=== PATIENT | male | born 1955 | race Caucasian/White ===

== ENCOUNTER 2018-09-05 15:27 | Inpatient (IN) ==
[2018-09-05] MEDS ORDERED: *HR* Midazolam HCl 2 MG/2 ML VIAL ONE (16:12)
[2018-09-05] MEDS ORDERED: *HR* FentaNYL (PF) 100 MCG/2 ML VIAL ONE (16:12)
[2018-09-05] MEDS ORDERED: Tirofiban 12.5 MG/250ML 12.5 MG/250 ML BAG ONE (16:25)
[2018-09-05] MEDS ORDERED: ISOVUE-370 200 ML INFUS..BTL ONE (16:38)
--- NOTE | 2018-09-05 18:59 | Cardiology History & Physical ---
Date of Encounter: 09/05/18 Time of Encounter: 18:57 Assessment and Plan (1) Acute anterior wall OH Status: Acute The assessment and plan as outlined above was discussed with the patient and/or family members who expressed understanding and agreement. All questions were answered. R/B/A d/w patient and he agreed to proceed to an LHC. Patient referred from [facility] for emergent LHC History of Present Illness Chief complaint: chest pain HPI: Mr. Landers is a 63 year old male with hx of mCRFs here with chest pain and EKG changes suggestive of an anterior OH. Patient [facility] emerg[facility] and hence hx is limited. R/B/A d/w patient and he agreed to proceed with an LHC. Past Med Surg Social Fam HX - Past Medical History Medical history: COPD, other (Patient has reportedly failed stress test prior) Psychiatric history: no psych history - Social History Smoking Status: Current every day smoker Smokeless Tobacco Status: No Alcohol use: none Drug use: none Medications and Allergies Unable To Obtain [Unable to Obtain] 09/05/18 [History] Allergy/AdvReac Type Severity Reaction Status Date / Time No Known Allergies Allergy Verified 09/05/18 15:02 All Systems Review: The remainder of the systems were reviewed and are negative Physical Examination General: Conversant, No Apparent Distress HEENT: Atraumatic, Normocephaly, Mucus Membranes Moist Neck: No JVD, Normal carotid pulses Cardiac: Reg Rate and Rhythm, Normal S1 and S2, No Murmur Lungs: Normal Breath Sounds, No Wheeze, Rales, Rhonchi Neuro: Alert and responsive, No focal deficits noted Abdomen: Soft, Non-Tender Skin: No rashes noted on visualized skin Musculoskeletal: No Chest Wall Tenderness Extremities: No Clubbing, No Cyanosis, No Edema, Normal Pulses
[2018-09-05] MEDS ORDERED: Tirofiban 12.5 MG/250ML 12.5 MG/250 ML BAG IVC SCH (19:00)
--- NOTE | 2018-09-05 19:22 | Invasive Diagnostic Lab Proc ---
Name: Edmund Landers Date of Study: 09/05/2018 Date: 1955 Ht: 68.1in Medical Record#: [id number] Age: 63 Wt: 138.01lb Gender: Male BSA: 1.75 Order #: [id number] BMI: 20.92 Physicians Procedure Physician: Luba Shankar MD Referring MD: Referring MD: Staff Name Position Time In Salvatore Ruiz RN Accounting Assistant 04:09 PM New Bustamante RN Accounting Assistant 04:09 PM Ricardo Gold RN Monitor 04:10 PM Shruthi Villatoro RT (R) Scrub 04:10 PM Indications Indication STEMI Procedures Performed Procedure CORONARY ARTERY ANGIO S&I PRQ CARD REVASC GA 1 VSL PRQ CARD MARIE STENT W/ANGIO 1 VSL Pre-Procedure Checklist Pt not NPO for procedure and MD aware. Plan of Care Patient will tolerate the procedure without complications. Adequate level of comfort will be maintained. Hemodynamics will remain stable Patient will recover from procedure without complications. Respiratory function will be maintained. Cardiac rhythm will remain stable. Patient temperature will be maintained. Patient and/or family have verbalized understanding of the procedure. Patient Education Allergies No Known Allergies Vital Signs Time BP (mmHg) HR (bpm) O2 Sat. RR (bpm) LOC 04:11 PM / % 5 = Fully awake and oriented or at pre-proc level 04:11 PM / % 4 = Oriented but drowsy 04:26 PM / % 4 = Oriented but drowsy 04:41 PM / % 4 = Oriented but drowsy 04:09 PM 142 / 108 77 98 % 19 04:14 PM 120 / 92 91 100 % 11 04:19 PM 114 / 85 92 100 % 04:24 PM 118 / 77 83 96 % 04:29 PM 116 / 80 95 96 % 14 04:34 PM 124 / 90 89 99 % 16 04:39 PM 131 / 91 86 98 % 20 04:44 PM 126 / 83 81 98 % 19 04:49 PM 124 / 92 96 100 % 16 04:54 PM 111 / 79 94 100 % 16 04:59 PM 119 / 78 97 100 % 21 05:30 PM 109 / 80 88 99 % 20 5 = Fully awake and oriented or at pre-proc level 05:53 PM 109 / 83 89 98 % 16 5 = Fully awake and oriented or at pre-proc level 06:02 PM 117 / 83 89 98 % 18 5 = Fully awake and oriented or at pre-proc level 06:13 PM 116 / 81 79 97 % 16 4 = Oriented but drowsy 07:13 PM 122 / 86 77 96 % 16 4 = Oriented but drowsy Procedural Medications Time Medication Dose Units Method Given By 04:11 PM Oxygen 2 L/min nasal cannula Salvatore Ruiz RN 04:12 PM Versed 1 mg Intravenous Salvatore Ruiz RN 04:13 PM Fentanyl 50 mcg Intravenous Salvatore Ruiz RN 04:15 PM Lidocaine 2% 16 ml Subcutaneous Luba Shankar MD 04:27 PM Heparin 3000 units Intravenous Salvatore Ruiz RN 04:29 PM Aggrastat Bolus: 33 ml Intravenous Salvatore Ruiz RN 04:29 PM Aggrastat 12.5mg/250ml 6 ml/hr Intravenous Salvatore Ruiz RN 04:38 PM Nitroglycerin 200 mcg Intracoronary Dave Shankar MD 04:39 PM Nitroglycerin 200 mcg Intracoronary Dave Shankar MD 04:54 PM Nitroglycerin 200 mcg Intracoronary Dave Shankar MD ASA Classification: CLASS II- Mild systemic disease (i.e. well-controlled diabetes, hypertension, asthma, cigarette smoking) Emergent Procedure: ASA score is assumed Amanda Score Preprocedure Postprocedure Activity 2- Moves 4 extremities sustained head lift Activity 2- Moves 4 extremities sustained head lift Circulation 2- SBP +/= 20 points of pre-anesthetic level Circulation 2- SBP +/= 20 points of pre-anesthetic level Consciousness 2- Awake and alert oriented x 3 Consciousness 2- Awake and alert oriented x 3 O2 Saturation 2- Able to maintain O2 satruation of 92% on room air O2 Saturation 2- Able to maintain O2 satruation of 92% on room air Respiratory 2- Able to deep breathe and cough well Respiratory 2- Able to deep breathe and cough well Total Score 10 Total Score 10 Contrast Agent: Isovue Diagnostic Contrast: 219 ml Total Contrast: 219 ml Fluoro Dose: 25 mGy Activated Clotting Time Time Seconds to Clot 04:22 PM 162 Procedure Log Time Note Enter By 04:09 PM Vitals capture started with the following parameters, Patient=Adult, Interval=5 min, Initial Jtuwpakk=259 mmHg, Deflation Rate=5 mmHg, Cuff placed on Right Arm 04:09 PM Patient with no chest pain on arrival cedwards 04:09 PM Case Start 04:09 PM CathStat 04:09 PM Recorded ECG: HR=75 Condition=Condition 1 04:09 PM HR=77 bpm, IOYX=437/108 mmhg, SpO2=98.0 %, Resp=19 B/min, Comment=NSR 04:09 PM Pt arrived to laborer pole crew 2 at 16:09 cedwards 04:09 PM Salvatore Ruiz RN Position: Accounting Assistant Time in: 16: cedwards 04:10 PM New Bustamante RN Position: Accounting Assistant Time in: 16: cedwards 04:10 PM Ricardo Gold RN Position: Monitor Time in: 16:10 cedwards 04:10 PM Irving, Shruthi RT (R) Position: Scrub Time in: 16:10 cedwards 04:10 PM Patient charges- Angio tray pack, Navilyst 3mm J, Pulse Oximetry and ACIST tubing and transducer ced 04:10 PM IV Supplies used: J loop Angio Cath. ced 04:10 PM Hair removed from procedure site in procedure lab using clippers. Bilateral groin prepped with Chloraprep by Ricardo Gold RN, then patient was draped. Skin intact. ced 04:10 PM Physician arrived 16:10 ced 04:10 PM ASA Class CLASS II- Mild systemic disease (i.e. well-controlled diabetes, hypertension, asthma, cigarette smoking) ced 04:10 PM Meet and greet completed 04:10 PM Sign in performed according to hospital policy. Informed consent was obtained. cedwards 04:10 PM Procedure start 16:10 ced 04:11 PM Time: 16:11 Oxygen on at 2 L/min per nasal cannula by Salvatore Ruiz RN ced 04:11 PM Time: 16:11 Patient comfortable and pain free: Yes ced 04:11 PM Time: 16:11LOC: 5 = Fully awake and oriented or at pre-proc level ced 04:13 PM Time: 16:12 Versed 1 mg Intravenous Given by Salvatore Ruiz RN ced 04:13 PM Time: 16:13 Fentanyl 50 mcg Intravenous Given by Salvatore Ruiz RN cedwards 04:14 PM HR=91 bpm, OPNE=487/92 mmhg, ZrH6=338.0 %, Resp=11 B/min 04:15 PM Clinical Presentation: STEMI or equivalent ced 04:15 PM Time out was performed according to hospital policy. Conscious sedation and anesthesia was achieved (see medication log with in this report above) cedwards 04:17 PM Time: 16:15 16 ml Lidocaine 2% to right groin Subcutaneous Given by Luba Shankar MD cedwards 04:18 PM Micro-Introducer Kit utilized for sheath placement cedwards 04:19 PM HR=92 bpm, YBNK=033/85 mmhg, XrS5=376.0 %, Comment=NSR 04:19 PM 0.035 145cm Navilyst 3mmJ wire [id number] cedwards 04:20 PM 0.035 180cm Glidewire wire [id number] cedwards 04:20 PM Access obtained by percutaneous puncture. 6Fr 10cm Terumo Delaplane sheath placed in right Femoral artery. [id number] cedwards 04:21 PM 5Fr FR 4 catheter inserted over the wire [facility] cedwards 04:22 PM RCA angiography performed in multiple views. cedwards 04:22 PM At 16:22 the ACT was 162 seconds. cedwards 04:23 PM Catheter removed cedwards 04:24 PM 5Fr FL 4 catheter inserted over the wire DN cedwards 04:24 PM HR=83 bpm, LFJN=834/77 mmhg, SpO2=96.0 % 04:26 PM Time: 16:11LOC: 4 = Oriented but drowsy cedwards 04:27 PM Lesion found in Mid RCA. Pre Stenosis: 95 Pre STEPAN Flow: 3: Complete and Brisk Flow/Perfusion cedwards 04:27 PM Lesion found in Proximal LAD. Pre Stenosis: 95 Pre STEPAN Flow: 3: Complete and Brisk Flow/Perfusion cedwards 04:27 PM Recorded Pressure: Ao, HR=88, Condition=Condition 1 (Aorta) Ao 77/-23/32 04:27 PM Time: 16:27 Heparin 3000 units Intravenous Given by Salvatore Ruiz RN cedwards 04:28 PM 6Fr JR 4 Cordis guide catheter was used to cannulate the PCI vessel successfully. reused? No cedwards 04:28 PM .014 [employer] [place] 190cm guide wire across target lesion- successful. reused? No cedwards 04:28 PM Inflation device was opened. cedwards 04:29 PM Time: 16:29 Aggrastat Bolus: 33 ml Intravenous Given by Salvatore Ruiz RN Burleson pump cedwards 04:29 PM Time: 16:29 Aggrastat 12.5mg/250ml 6 ml/hr Intravenous Given by Salvatore Ruiz RN Burleosn pump cedwards 04:29 PM HR=95 bpm, LYPP=088/80 mmhg, SpO2=96.0 %, Resp=14 B/min 04:29 PM 2.0 mm x 12 mm Mozec Rx balloon across target lesion- successful. reused? No cedwards 04:30 PM Recorded Pressure: Ao, HR=94, Condition=Condition 1 (Aorta) Ao 126/83/103 04:31 PM Coronary Dominance: right cedwards 04:32 PM Lesion found in Distal RCA. Pre Stenosis: 65 Pre STEPAN Flow: cedwards 04:34 PM Balloon inflated @ 6 maci for 8 seconds cedwards 04:34 PM Balloon catheter removed intact. cedwards 04:34 PM HR=89 bpm, JULN=539/90 mmhg, SpO2=99.0 %, Resp=16 B/min 04:35 PM 2.5mm x 20mm Synergy drug-eluting stent across target lesion- successful Lot #[id number] cedwards 04:36 PM Stent deployed @ 11 maci for 12 seconds cedwards 04:36 PM Stent balloon reinflated @ 14 maci for 8 seconds cedwards 04:37 PM Stent delivery system removed intact. cedwards 04:38 PM Time: 16:38 Nitroglycerin 200 mcg Intracoronary Given by Dave Shankar MD cedwards 04:38 PM Recorded Pressure: Ao, HR=88, Condition=Condition 1 (Aorta) Ao 141/87/110 04:39 PM HR=86 bpm, FWCJ=744/91 mmhg, SpO2=98.0 %, Resp=20 B/min 04:39 PM Time: 16:39 Nitroglycerin 200 mcg Intracoronary Given by Dave Shankar MD cedwards 04:40 PM Recorded Pressure: Ao, HR=89, Condition=Condition 1 (Aorta) Ao 117/83/98 04:41 PM Time: 16:26LOC: 4 = Oriented but drowsy cedwards 04:42 PM Stent delivery system removed intact. cedwards 04:42 PM Guide wire removed intact. cedwards 04:42 PM Guide catheter removed intact. cedwards 04:42 PM 6Fr XB LAD 3.5 Cordis guide catheter was used to cannulate the PCI vessel successfully. reused? No cedwards 04:44 PM HR=81 bpm, CRRA=556/83 mmhg, SpO2=98.0 %, Resp=19 B/min 04:45 PM Recorded Pressure: Ao, HR=89, Condition=Condition 1 (Aorta) Ao 116/83/98 04:47 PM 2.0 mm x 12 mm Mozec Rx balloon across target lesion- successful. reused? Yes cedwards 04:48 PM Balloon inflated @ 6 maci for 2 seconds cedwards 04:48 PM Balloon inflated @ 6 maci for 6 seconds cedwards 04:48 PM Balloon inflated @ 6 maci for 10 seconds cedwards 04:49 PM Balloon catheter removed intact. cedwards 04:49 PM HR=96 bpm, UMQE=217/92 mmhg, DpS6=841.0 %, Resp=16 B/min, Comment=NSR 04:51 PM 3.0mm x 20mm Synergy drug-eluting stent across target lesion- successful Lot #[id number] cedwards 04:52 PM Stent deployed @ 9 maci for 8 seconds cedwards 04:53 PM Stent balloon reinflated @ 14 maci for 7 seconds cedwards 04:53 PM Stent delivery system removed intact. cedwards 04:53 PM Recorded Pressure: Ao, HR=91, Condition=Condition 1 (Aorta) Ao 129/87/106 04:54 PM Time: 16:54 Nitroglycerin 200 mcg Intracoronary Given by Dave Shankar MD cedwards 04:54 PM HR=94 bpm, DCHX=259/79 mmhg, PtM3=566.0 %, Resp=16 B/min 04:55 PM 3.5 mm x 13mm Mozec NC balloon across target lesion- successful. reused? No cedwards 04:57 PM Time: 16:41LOC: 4 = Oriented but drowsy cedwards 04:57 PM Balloon inflated @ 12 maci for 9 seconds cedwards 04:57 PM Balloon inflated @ 12 maci for 4 seconds cedwards 04:57 PM Balloon catheter removed intact. cedwards 04:59 PM Guide wire removed intact. cedwards 04:59 PM Guide catheter removed intact. cedwards 04:59 PM HR=97 bpm, ALWP=404/78 mmhg, VlT9=666.0 %, Resp=21 B/min 05:01 PM Procedure completed at 17:01 09/05/2018 cedwards 05:02 PM Did you address STEPAN flow and Dominance? Yes cedwards 05:03 PM Sign out completed: Radiation Dose 236.67 mGy, 25.1 Gy/cm2 Fluoro Time: 12.2 Isovue 370 - 200ml contrast 219 ml given by Luba Shankar MD. Complications: None. The patient was discharged out of the labeler in stable condition. Sedation minutes 49. Cardiac Rehab Consult needed: Yes. Confirmed administered medications: Yes cedwards 05:03 PM Isovue 370 - 200ml,2 Bottle(s) used. cedwards 05:04 PM Arterial sheath pulled, Angio-seal closure device used and was Successful [id number] S/N. cedwards 05:04 PM Estimated Blood Loss: minimal cedwards 05:04 PM Post ECG NSR cedwards 05:04 PM Post Blood Pressure 119/78 cedwards 05:04 PM Information taught Cardiac Cath, PCI, and Angioseal cedwards 05:04 PM Education needs Procedure, Plan of Care, and Disease Process cedwards 05:04 PM Learning barriers :None cedwards 05:04 PM Education Methods Verbal cedwards 05:04 PM Education evaluation Able to repeat information cedwards 05:05 PM Site status No bleeding/hematoma - Rt Groin as reported by Dave Shankar MD at 17:04 cedwards 05:05 PM Opsite applied cedwards 05:05 PM Plavix, Effient or Brilinta given Yes cedwards 05:05 PM Family not available. cedwards 05:06 PM Complications: None cedwards 05:06 PM 17:06 Post Pulses Bilateral DP 2+ cedwards 05:08 PM Lesion found in 3rd Marginal. Pre Stenosis: 65 Pre STEPAN Flow: cedwards 05:09 PM Patient taken to holding, currently no beds available cedwards 05:30 PM Patient resting. Provided warm blankets. Denies any pain at this time. kprater 06:04 PM Patient talking on phone with family. kprater 06:13 PM 275 clear yellow urine per urinal. kprater 06:38 PM Patient sleeping. kprater 07:12 PM Report given to Ottoniel RICHARDSON Pt taken to Room #7. 19:12 ejohnson Complications Complication None None Hemodynamics Pressures Site Systolic/A Wave Diastolic/V Wave Mean AO 77 -23 32 AO 126 83 103 AO 141 87 110 AO 117 83 98 AO 116 83 98 AO 129 87 106 Post Procedure Information Blood Pressure: 119/78 mmHg Rhythm: NSR Post procedural instructions were given Closure Device Time Device Success/Fail 09/05/2018 5:06:00 PM Angio-Seal VIP Successful Site Checks Time Location Status Staff Sheath In? Note 05:04 PM Rt Groin No bleeding/hematoma Dave Shankar MD 05:38 PM Rt Groin No bleeding/ No Hematoma Sydnie Edmondson RN 05:52 PM Rt Groin No bleeding/ No Hematoma Sydnie Edmondson RN 05:59 PM Rt Groin No bleeding/ No Hematoma Sydnie Edmondson RN 06:37 PM Rt Groin No bleeding/ No Hematoma Sydnie Edmondson RN Pulses Time Site Pre-Procedure Post-Procedure Note 5:06:00 PM Bilateral DP 2+ 2+ Updated by Guadalupe Kim RN on 09/05/2018 7:13:32 PM electronically signed on 09/05/2018 7:14:04 PM with status of Final
[2018-09-05] MEDS ORDERED: Perflutren Lipid Microsphere 1.3 ML in 0.9 % Sodium Chloride 8.7 ML IVP ONE (21:40)
[2018-09-05] MEDS: *HR* Ticagrelor 90 MG TABLET PO SCH (22:20)
[2018-09-06] MEDS: *HR* Ticagrelor 90 MG TABLET PO SCH ×2 (07:36→20:08)
[2018-09-06] MEDS: Aspirin 81 MG TAB.CHEW PO SCH (07:36)
[2018-09-06 07:50] LABS: Basophils # 0.1 K/mcL (0.0-0.2); Basophils % 0.5 %; Eosinophils # 0.1 K/mcL (0.0-0.6); Eosinophils % 1.5 %; Hematocrit 42.3 % (37.5-50.1); Hemoglobin 14.3 g/dL (12.9-16.9); Immature Granulocytes % 0.4 % (0-4); Lymphocytes # 1.9 K/mcL (0.6-4.6); Lymphocytes % 19.9 %; Mean Corpuscular HGB Conc 33.8 g/dL (31.6-35.5); Mean Corpuscular Hemoglobin 30.8 pg (28.0-33.3); Mean Platelet Volume 10.7 fL (9.4-12.4); Monocytes # 0.8 K/mcL (0.0-1.3); Monocytes % 8.2 %; Neutrophils # 6.5 K/mcL (1.6-8.9); Platelet Count 253 K/mcL (140-400); Red Blood Count 4.65 M/mcL (4.19-5.50); Red Cell Distribution Width 13.9 % (11.5-14.5); Segmented Neutrophils % 69.5 %
[2018-09-06 08:04] LABS: BUN/Creatinine Ratio 18 (6-26); Blood Urea Nitrogen 16 mg/dL (8-23); Calcium 8.8 mg/dL (8.6-10.3); Carbon Dioxide 20 mEq/L (23-29); Chloride 111 mEq/L (98-107); Glucose 91 mg/dL (70-105); Osmolality,Calculated 291 (280-300); Potassium 4.3 mEq/L (3.5-5.1); Sodium 140 mEq/L (136-145); eGFR For Non-African Americans > 60 (> 60)
--- NOTE | 2018-09-06 15:15 | Cardiology Progress Note ---
Date of Encounter: 09/06/18 Time of Encounter: 15:13 Assessment and Plan (1) ST elevation myocardial infarction (STEMI) Current Visit: No Status: Acute Per cardiology: -Admitted as acute STEMI and was taken emergently to lab pack chemist. -LHC with 95% prox LAD with MARIE placed, 95% mid RCA with MARIE placed, 65% distal RCA, 65% om3. -TTE with LVEF 50%, regional wall motion abnormalities noted. -On asa, brilinta, statin. Educated on dual anti-platelet therapy uninterrupted for at least one year, states understanding. -Will add BB. -Potential DC tomorrow. -of note, patient is from [place] and was here taking care of his mother, states he had previously planned on going back to [place] this week. Patient follows with [facility] in [place]. Recommended [facility] call [facility] and obtain appt in 5-7 days with [facility] clinical phlebotomist in [place]. Qualifiers: Involved coronary artery: LAD coronary artery Qualified Code(s): I21.02 - ST elevation (STEMI) myocardial infarction involving left anterior descending coronary artery (2) Essential hypertension Current Visit: Yes Status: Acute Per cardiology: -Kown HTN. -Adding BB. -Will continue to monitor. Discussion w patient/family: The assessment and plan as outlined above was discussed with the patient who expressed understanding and agreement. All questions were answered. Thank you for involving us in the care of your patient. Please call with any questions. Discussed and reviewed with Subjective Principal diagnosis: STEMI Interval history: Patient denies chest pain. Objective Vital Signs, Last 4 Hours Temp Pulse Resp BP Pulse Ox 09/06/18 12:02 98.3 F 65 18 102/85 98 09/06/18 11:29 98.7 F 67 18 115/74 99 General: Conversant, No Apparent Distress HEENT: Atraumatic, Normocephaly, Mucus Membranes Moist Neck: No JVD, Normal carotid pulses Cardiac: Reg Rate and Rhythm, Normal S1 and S2, No Murmur Lungs: Normal Breath Sounds, No Wheeze, Rales, Rhonchi Neuro: Alert and responsive, No focal deficits noted Abdomen: Soft, Non-Tender Skin: No rashes noted on visualized skin, Other (Right groin access site without hematoma. ) Musculoskeletal: No Chest Wall Tenderness Extremities: No Clubbing, No Cyanosis, No Edema, Normal Pulses Results 09/06/18 07:17 09/06/18 07:17 Lab Results Impressions Echocardiogram 09/05/18 18:55 Impressions: LVEF 50%. Mild segmental left ventricular systolic dysfunction. Mild left ventricular diastolic dysfunction. Normal right ventricular structure and function. Unable to estimate RVSP due to lack of TR jet. No significant valvular dysfunction. Left Ventricular Wall Motion: Rest Echo Findings The apical anterior, mid anterior, apical septal and mid anterior septal sainz were hypokinetic. All other wall segments showed normal motion. Findings: Study Quality * Technically adequate exam. ECG Findings * Sinus rhythm with BBB. Left Ventricle * LVEF 50%. * Mild segmental left ventricular systolic dysfunction. * Normal LV chamber size. * Definity echo contrast was used. * Atypical septal motion consistent with bundle branch block. * There is no LV thrombus. * Mild left ventricular diastolic dysfunction. Right Ventricle * Normal right ventricular structure and function. Left Atrium * Normal left atrial size. Right Atrium * Normal right atrial size. Aortic Valve * Aortic valve not well visualized. * No aortic regurgitation. * No aortic stenosis. Mitral Valve * No mitral stenosis. * Normal mitral valve structure. * Trace mitral regurgitation. Tricuspid Valve * Normal tricuspid valve structure. * Trace tricuspid regurgitation. * No tricuspid stenosis. * Unable to estimate RVSP due to lack of TR jet. Pulmonic Valve * Pulmonic valve not well visualized. Aorta * Normally sized aortic root. Pericardium * The pericardium appears normal. IVC * Normal IVC dimensions and inspiratory collapse. Pulmonary Artery * Normal visualized portions of the main pulmonary artery. Active Medications Aspirin (Aspirin) 81 mg PO DAILY BRYANNA Stop: 03/08/19 09:01 Last Admin: 09/06/18 07:36 Dose: 81 mg Atorvastatin Calcium (Lipitor) 80 mg PO HS BRYANNA Stop: 03/07/19 21:01 Last Admin: 09/05/18 22:20 Dose: 80 mg Metoprolol Succinate (Toprol Xl) 25 mg PO DAILY BRYANNA Stop: 03/08/19 15:16 Ticagrelor (Brilinta) 90 mg PO BID BRYANNA Stop: 03/07/19 21:01 Last Admin: 09/06/18 07:36 Dose: 90 mg Laboratory Tests 09/06/18 09/06/18 07:17 07:17 Hgb 14.3 Creatinine 0.89 - Imaging and Cardiology Chest Xray: report reviewed Echo: report reviewed Cardiac cath: report reviewed - EKG Interpretation EKG results cardiology: other (Telemetry reviewed with average HR previous 12 hours noted to be 72, SR. PVCs and PACs noted.) Consult Discharge Plan - Plan Referrals: [facility] ([facility] [Other] - 09/21/18 1:00 pm Luba Shankar [Partnered Physician] - (Per the office they will call the patient at home with follow up appointment)
--- NOTE | 2018-09-06 16:24 | Electrocardiograph Report ---
[place] [id number] Test Date: 2018-09-05 Pat Name: Edmund Landers Department: 110 Room: 2N13 Gender: M Passenger Coach Driver: : 1955 Requested By: Luba Shankar Order Number: [id number] Reading MD: Ottoniel Lehman Measurements Intervals [place] Rate: 76 P: 148 [place]: 139 QRS: 36 QRSD: 86 T: 150 QT: 390 QTc: 420 Interpretive Statements SINUS RHYTHM POSSIBLE LEFT ATRIAL ENLARGEMENT LOW QRS VOLTAGE IN EXTREMITY LEADS SEPTAL MYOCARDIAL INFARCTION, OF INDETERMINATE AGE MODERATE T-WAVE ABNORMALITY, CONSIDER ANTERIOR ISCHEMIA Electronically Signed On 09-06-2018 16:23:08 EDT by Ottoniel Lehman
[2018-09-06] MEDS: Metoprolol XL (24 HR) Succ 25 MG TAB.ER.24H PO SCH (19:08)
[2018-09-07 07:50] VITALS: BP 117/92
[2018-09-07] MEDS: *HR* Ticagrelor 90 MG TABLET PO SCH (08:46)
[2018-09-07] MEDS: Metoprolol XL (24 HR) Succ 25 MG TAB.ER.24H PO SCH (08:46)
[2018-09-07] MEDS: Aspirin 81 MG TAB.CHEW PO SCH (08:46)
[2018-09-07] MEDS ORDERED: Nitroglycerin 0.4 MG TAB.SUBL SL PRN (10:14)
--- NOTE | 2018-09-07 10:14 | Discharge Summary ---
- NOTES TO OUTPATIENT PROVIDER Notes to Outpatient Provider: Admitted after STEMI Orders not resulted at time of discharge: Pending orders 09/05/18 18:55 ECG 12 lead ECG [ECG] Routine ECG 12 lead ECG [ECG] Stat Date of Encounter: 09/07/18 Time of Encounter: 10:13 - Discharge Diagnosis (1) ST elevation myocardial infarction (STEMI) Priority: Primary Status: Acute Comments: Admitted after STEMI Qualifiers: Involved coronary artery: LAD coronary artery Qualified Code(s): I21.02 - ST elevation (STEMI) myocardial infarction involving left anterior descending coronary artery (2) Essential hypertension Priority: Secondary Status: Acute Comments: Known. BP controlled. - Hospital Course Hospital course: Mr. Lnaders is a 63 year old male who was admitted to [facility] with STEMI. Patient was taken emergently to the laboratory coordinator. LHC with 95% prox LAD with MARIE placed, 95% mid RCA with MARIE placed, 65% distal RCA, 65% om3. TTE with LVEF 50%, regional wall motion abnormalities noted. On asa, brilinta. Educated on dual anti- platelet therapy uninterrupted for at least one year, states understanding. On statin, BB. Denies chest pain. Right groin access site without ecchymosis or hematoma. Right groin access site management education reviewed with patient, states understanding. Patient is being prepped for discharge home in stable condition. All questions answered. Of note, patient is from [place] and was planning on going back to [place], however now states he may stay in [place]. Will arrange outpatient follow up with [facility]. Educated patient that if he returns to [place], he needs seen by a home mortgage disclosure act specialist within one week. Patient states understanding. Patient is being prepped for discharge home in stable condition. Patient is ok for discharge after medications filled at [facility]. - Time Spent with Patient Total time spent providing and/or coordinating discharge services: Less than 30 minutes - Discharge Medications Prescriptions: New Nitroglycerin 0.4 mg SL Q5MI PRN #15 tab.subl PRN Reason: Chest Pain Aspirin 81 mg PO DAILY #30 tab.chew Atorvastatin [Lipitor] 80 mg PO HS #30 tablet Metoprolol XL (24 HR) Succ [Toprol Xl] 25 mg PO DAILY #30 tab.er.24h Ticagrelor [Brilinta] 90 mg PO BID #180 tablet Discontinued Lisinopril/Hydrochlorothiazide [Zestoretic 10-12.5 mg Tablet] 1 tab PO DAILY Tadalafil [Cialis] 10 mg PO AD PRN PRN Reason: SEXUAL ACTIVITY No Action Aspirin 975 mg PO DAILY PRN PRN Reason: Pain Home Medications: Aspirin 975 mg PO DAILY PRN 09/05/18 [History] Aspirin 81 mg PO DAILY #30 tab.chew 09/07/18 [Rx] Atorvastatin [Lipitor] 80 mg PO HS #30 tablet 09/07/18 [Rx] Metoprolol XL (24 HR) Succ [Toprol Xl] 25 mg PO DAILY #30 tab.er.24h 09/07/18 [Rx] Nitroglycerin 0.4 mg SL Q5MI PRN #15 tab.subl 09/07/18 [Rx] Ticagrelor [Brilinta] 90 mg PO BID #180 tablet 09/07/18 [Rx] Allergies/Adverse Reactions: Allergy/AdvReac Type Severity Reaction Status Date / Time No Known Allergies Allergy Verified 09/05/18 22:22 Date of admission: 09/05/18 15:32 Primary care physician: PCP NONE Consults: 09/05/18 18:55 Consult to Cardiac Rehabilitation-Phase1 [CONS] Routine Comment: Reason for Consult: AMI Call Completed: Yes Consult to Nurse Navigator [CONS] Routine Comment: Discharging clinician: Linda Cameron Anticipated date of discharge: 09/07/18 Physical Examination Vital Signs, Last 4 Hours Temp Pulse Resp BP Pulse Ox 09/07/18 07:48 98.7 F 79 18 117/92 98 General: Conversant, No Apparent Distress HEENT: Atraumatic, Normocephaly, Mucus Membranes Moist Neck: No JVD, Normal carotid pulses Cardiac: Reg Rate and Rhythm, Normal S1 and S2, No Murmur Lungs: Normal Breath Sounds, No Wheeze, Rales, Rhonchi Neuro: Alert and responsive, No focal deficits noted Abdomen: Soft, Non-Tender Skin: No rashes noted on visualized skin, Other (Right groin access site without ecchymosis or hematoma. ) Musculoskeletal: No Chest Wall Tenderness Extremities: No Clubbing, No Cyanosis, No Edema, Normal Pulses - Patient Status Disposition: Home, Self-Care Condition: Good Functional capacity at discharge: independent ambulation Overall status at discharge: patient is progressing back to baseline - Discharge Instructions Follow Up With: [facility] [Other] - 09/21/18 1:00 pm Luba Shankar [Partnered Physician] - (Per the office they will call the patient at home with follow up appointment) Additional Instructions: RISK FACTORS: STOP SMOKING: If you smoke, STOP. Smoking or tobacco use significantly increases your risk of heart disease because nicotine causes the arteries to narrow or constrict. It also causes fats to stick to the artery. Your chances of having a heart attack are greatly increased if you continue to smoke. For more information, call the education line for smoking cessation 7-299-XYGDWXS EAT A LOW FAT/CHOLESTEROL/SODIUM DIET: This diet may help reduce your chances of having a heart attack. LIFTING: Avoid lifting anything more than 10 pounds for 5-7 days Prior to straining, laughing, sneezing and/or coughing, apply manual pressure directly over insertion site. ACTIVITY: You may walk or climb stairs as tolerated You can resume sexual activity as tolerated In general, you are encouraged to engage in a minimum of 30 minutes or more of moderate intensity physical activity, such as brisk walking, daily or at least 3-4 times weekly BATHING Do not submerge the site into water (bath tub, hot tub, swimming pool) for 1 week. This can be a source for infection into the blood stream. You may shower after 24 hours SITE CARE: After 24 hours, you may remove the dressing and leave the site open to air. Keep the site clean and dry. Clean gently and pat dry. You can expect bruising and tenderness that gradually resolve within a week or two. Return to work as instructed per your physician Resume driving as instructed per physician Keep all scheduled follow up appointments Resume medications as instructed IMPORTANT: If prescribed a Platelet Aggregation Inhibitor such as, Plavix, Brilinta or Effient: Duration of therapy is minimum one year These medications are often used in combination with Aspirin in prevention of future heart attacks Never discontinue unless consult with your General Education Professor STROKE (CVA) Risk factors for a stroke are: Age, cigarette smoking, diabetes, excessive alcohol consumption, family history, high blood pressure, overweight, physical inactivity, prior stroke, heart attack, diagnosis of carotid artery stenosis or other artery disease. Warning signs: Sudden numbness or weakness of the face, arm or leg; especially on one side of the body, sudden confusion, trouble speaking or understanding, sudden trouble seeing in one or both eyes, sudden trouble walking, dizziness, loss of balance or coordination, sudden severe headache with no cause. Call 911 or go to the Emergency Room. CONGESTIVE HEART FAILURE: If you have been diagnosed with Congestive Heart Failure (CHF) and your symptoms return, make an appointment with your physician Weigh yourself daily. Notify your physician if you have a weight gain of two or more pounds in one day or five or more pounds in one week. If you experience any difficulty breathing, please call 911 BLEEDING: Although the risk of bleeding is minimal, it can happen. If you have any bleeding from the site, apply firm pressure above the puncture site for 10-15 minutes. If the bleeding does not stop, continue manual pressure and call 911 Contact your physician if: You develop a fever greater than 101 degrees Fahrenheit Your site becomes reddened or has any drainage You have an increase in pain or burning at the site or if a large knot forms at the site. If you experience chest pain, shortness of breath, dizziness, or extreme tiredness, stop the activity and rest. Please notify your physicians office if you experience any of these symptoms and they are not relieved by rest please call 911! - Diet and Activity Activity: increase activity as tolerated (Follow restrictions as above) Diet: low fat, low cholesterol, low salt diet
== END 2018-09-07 17:26 | disposition home or self-care (01) | DRG 247 ==
LOC: 2NNU 19:01
PROVIDERS: ADMIT Internal Medicine Cardiovascular Disease; ATTEND Internal Medicine Cardiovascular Disease